=== PATIENT | male | born 1965 | race Caucasian/White ===

== ENCOUNTER → 2023-06-05 | Outpatient (CLI) | payer OTHER ==
[~2023-06-05] MED LIST: REGADENOSON 0.4 MG/5 ML SYRINGE IV PRN
--- NOTE | 2023-06-05 11:21 | CA ---
Lexiscan Nuclear Stress Test Report Name: Collins Stanley Exam Date: 06/05/2023 10:15 Exam Location: [facility] Ht (in): 72 Wt (lb): 250 BSA: 2.34 Ordering Phys: Karen Huynh MD Referring Phys: KAREN HUYNH,, Technologist: Ishaan Butler Age: 57 Gender: M : 1965 Procedure CPT: Indications: I20.9 Angina ICD-10 Codes: Patient History: Medications: Meds past 24 hrs: Pretest Chest Pain: STRESS TEST Lexiscan Protocol Exercise Duration (min:sec): 01:[address] Depressions (mm): Angina Score: [place] Score: Resting HR (bpm): 77 Peak HR (bpm): 119 Resting BP (mmHg): 147 / 94 Peak BP (mmHg): 151 / 90 MPHR: 161 Target HR: 137 % MPHR: 74 METS: 1.0 Total Dose: Peak Dose: Atropine: Double Product: 75070 BP Response: Stress Termination: INFUSION COMPLETE Stress Symptoms: DIFFICULTY IN BREATHING Stress Summary: ECG ANALYSIS Resting ECG: Atrial fibrillation with nonspecific ST-T wave changes Stress ECG: Patient was given intravenous Lexiscan as a protocol did not have chest pain or diagnostic ST segment depression CONCLUSIONS Negative stress test by EKG criteria Cardiac portion of the stress test will be reported separately Dr. Per Wilcox MD (Electronically Signed) Final Date: 05 June 2023 11:20
== END | disposition home or self-care (01) ==
LOC: RADNMMAIN 08:24
PROVIDERS: ATTEND Internal Medicine Clinical Cardiac Electrophysiology
DX: I20.9 Angina pectoris, unspecified (principal); R55 Syncope and collapse
CPT/HCPCS: 93017; 78452; A9500; J2785

== ENCOUNTER 2023-08-29 10:01 | Day surgery (SDC) | payer OTHER ==
[2023-08-26 15:05] VITALS: BMI 35.2
[~2023-08-29 10:01] MED LIST changes: +ALPRAZolam 0.25 MG TAB PO PRN; +HEPARIN SODIUM,PORCINE (1 ML) 2,500 UNIT in SODIUM CHLORIDE 0.9% 250 ML IRRIGATION PRN; +HEPARIN SODIUM,PORCINE 10,000 UNIT in SODIUM CHLORIDE 0.9% 1,000 ML IRRIGATION PRN; +NITROGLYCERIN SL TABS 0.4 MG TAB SUBLINGUAL PRN; -REGADENOSON 0.4 MG/5 ML SYRINGE IV PRN
[2023-08-29] MEDS: SODIUM CHLORIDE 0.9% 1,000 ML in EMPTY BAG 1 BAG IV SCH (11:12)
[2023-08-29] MEDS: ALPRAZolam 0.5 MG TAB PO PRN (11:13)
[2023-08-29] MEDS: ASPIRIN 325 MG TAB PO STA (11:13)
[2023-08-29 12:00] LABS: African American GFR (CKD) 49 (>60 ml/min/1.73 sqM); Anion Gap 8 mmol/L; Blood Urea Nitrogen 27 mg/dL (9-20); Calcium 9.3 mg/dL (8.4-10.2); Carbon Dioxide 26 mmol/L (22-30); Chloride 101 mmol/L (98-107); Glucose 142 mg/dL (74-99); Non-African American GFR(CKD) 42 (>60 ml/min/1.73 sqM); Potassium 3.8 mmol/L (3.5-5.1); Sodium 135 mmol/L (137-145)
[2023-08-29 12:07] LABS: Basophils % (A) 1 %; Eosinophils # (A) 0.1 k/uL (0-0.7); Eosinophils % (A) 2 %; HCT 47.2 % (39.0-53.0); HGB 16.6 gm/dL (13.0-17.5); Lymphocytes # (A) 1.3 k/uL (1.0-4.8); Lymphocytes % (A) 20 %; MCH 31.6 pg (25.0-35.0); MCHC 35.2 g/dL (31.0-37.0); MCV 89.6 fL (80.0-100.0); Mean Platelet Volume 9.1; Monocytes # (A) 0.4 k/uL (0-1.0); Monocytes % (A) 6 %; Neutrophils # (A) 4.6 k/uL (1.3-7.7); Neutrophils % (A) 70 %; Platelet Count 143 k/uL (150-450); RBC 5.26 m/uL (4.30-5.90); RDW 13.9 % (11.5-15.5); WBC 6.6 k/uL (3.8-10.6)
[2023-08-29] MEDS ORDERED: VERAPAMIL 2.5 MG/ML 2 ML AMP ONE (13:55)
[2023-08-29] MEDS ORDERED: LIDOCAINE 1% INJ 10MG/ML (20 ML MDV) ONE (13:55)
[2023-08-29] MEDS ORDERED: fentaNYL (PF) 50 MCG/ML 2 ML AMP ONE (13:56)
[2023-08-29] MEDS ORDERED: HEPARIN SODIUM 1,000 UN/ML (10ML VL) ONE (13:56)
[2023-08-29] MEDS: fentaNYL (PF) 50 MCG/1 ML VIAL IVP ONE ×2 (14:41→14:48)
[2023-08-29] MEDS: LIDOCAINE 2% (PF) 20 MG/ML 5 ML VIAL SQ ONE (14:41)
[2023-08-29] MEDS: MIDAZOLAM 2 MG/2 ML VIAL IVP ONE ×2 (14:41→14:48)
[2023-08-29] MEDS: HEPARIN SODIUM 1,000 UN/ML (10ML VL) IVP ONE (14:47)
[2023-08-29] MEDS ORDERED: RX INFO: IV CONTRAST WAS GIVEN 1 EACH MISC MISCELLANE PRN (15:00)
[2023-08-29 15:34] VITALS: RESP 17
[2023-08-29 18:39] VITALS: PULSE 63
[2023-08-29 19:50] VITALS: BP 105/73; TEMP 97.6
--- NOTE | 2023-08-30 01:10 | P.CARDCATH ---
Description of Procedure: PROCEDURES PERFORMED: Left heart catheterization, bilateral coronary angiography, ultrasound guided arterial access INDICATION: Abnormal stress test CONSENT:I have discussed the risks, benefits and alternative therapies for the above-mentioned procedure and for both sedation/analgesia as well as necessary blood product administration, if indicated, as they pertain to this patient. The patient has indicated understanding and acceptance of the risks and procedures discussed. PROCEDURE: After the risks, benefits and alternatives of the above mentioned procedure explained in detail with the patient, informed consent was obtained. Patient was taken to the catheterization lab and prepped and draped in usual fashion. Ultrasound guidance was used to assess for arterial access. 1% lidocaine was used to anesthetize the right radial artery. A 6-Yemeni sheath was placed in the right radial artery using modified Seldinger technique and ultrasound guidance. Left coronary angiography was performed with a 5-Yemeni JL 3.5 catheter and right coronary angiography was performed with a 5-Yemeni FR5 catheter in various views. A 5-Yemeni FR5 catheter was inserted into the left ventricle and pressure measurements were obtained. The right radial sheath was removed and a TR band was placed with hemostasis achieved. The patient to lerated the procedure well. Patient was transported back to the post catheterization holding area in stable condition. Conscious Sedation: Patient was monitored under the direct supervision of myself for conscious sedation using Versed and fentanyl for a total duration of 10 minutes HEMODYNAMICS: Ao: 91/78 LV: 90/6, LVEDP 14 SELECTIVE CORONARY ARTERIOGRAPHY: LEFT MAIN: The left main is a large caliber vessel which bifurcates into the LAD and circumflex. There is no significant stenosis. LEFT ANTERIOR DESCENDING CORONARY ARTERY: LAD is a large caliber vessel which wraps around to the apex. There is mild proximal LAD 30% stenosis and otherwise mild luminal irregularities. LEFT CIRCUMFLEX CORONARY ARTERY: Left circumflex is a large caliber vessel that give off the PDA and is the dominant vessel. There are mild luminal irregularities. RIGHT CORONARY ARTERY: The right coronary artery is a large caliber vessel which gives off an acute marginal branch and is a non-dominant vessel. There is no significant stenosis. FINAL IMPRESSION: 1. Mild CAD as described above with 30% proximal LAD stenosis 2. Normal left sided filling pressures PLAN: 1. Aggressive risk factor modification per most recent ACC/AHA guidelines. 2. Follow-up in the office in 1-2 weeks.
== END 2023-08-29 22:35 | disposition home or self-care (01) ==
LOC: CATHCVL 10:01 → 6NMEDSUR 14:53 → CATHCVL 22:35
PROVIDERS: ATTEND Internal Medicine
DX: I25.10 Atherosclerotic heart disease of native coronary artery without angina pectoris (principal); I48.21 Permanent atrial fibrillation; I10 Essential (primary) hypertension; E78.5 Hyperlipidemia, unspecified; F17.200 Nicotine dependence, unspecified, uncomplicated; Z79.01 Long term (current) use of anticoagulants; Z79.899 Other long term (current) drug therapy; Z82.49 Family history of ischemic heart disease and other diseases of the circulatory system
CPT/HCPCS: 93458; 76937; 80048; 85025; C1769 ×2; C1894; J2250; J1644; J2001; J3010